=== PATIENT | male | born 1955 | race African-American/Black ===

== ENCOUNTER 2018-03-24 21:21 | Emergency (ER) | payer MEDICARE ==
[~2018-03-24] VITALS: Ht 190.5 cm; Wt 113.4 kg
--- NOTE | 2018-03-24 22:00 | PHYS DOC ---
Past History Past Medical History: Prostatitis Past Surgical History: No Surgical History Alcohol Use: Rarely Drug Use: None Adult General Chief Complaint Chief Complaint: ABDOMINAL PAIN HPI HPI 62-year-old male presents with urinary retention. The patient has been unable to urinate since noon today, 10 hours ago. The patient knows he has an enlarged prostate. He is supposed to be on medication, but quit taking it for an unknown reason. He does not know which medication he supposed be on. The patient now has lower abdominal pain all across his abdomen. He denies fever or chills. He always has some resistance to flow at baseline, but this is the first time he is not able to urinate at all. Review of Systems Review of Systems Constitutional: Denies fever or chills [] Eyes: Denies change in visual acuity, redness, or eye pain [] HENT: Denies nasal congestion or sore throat [] Respiratory: Denies cough or shortness of breath [] Cardiovascular: No additional information not addressed in HPI [] GI: Lower abdominal pain[] : Urinary retention[] Musculoskeletal: Denies back pain or joint pain [] Integument: Denies rash or skin lesions [] Neurologic: Denies headache, focal weakness or sensory changes [] Endocrine: Denies polyuria or polydipsia [] All other systems were reviewed and found to be within normal limits, except as documented in this note. Physical Exam Physical Exam Constitutional: Well developed, well nourished, no acute distress, non-toxic appearance. [] HENT: Normocephalic, atraumatic, bilateral external ears normal, oropharynx moist, no oral exudates, nose normal. [] Eyes: PERRLA, EOMI, conjunctiva normal, no discharge. [] Neck: Normal range of motion, no tenderness, supple, no stridor. [] Cardiovascular:Heart rate regular rhythm, no murmur [] Lungs & Thorax: Bilateral breath sounds clear to auscultation [] Abdomen: Obese, moderate suprapubic tenderness with guarding.[] Skin: Warm, dry, no erythema, no rash. [] Back: No tenderness. [] Extremities: No tenderness, no cyanosis, no clubbing, ROM intact, no edema. [] Neurologic: Alert and oriented X 3, normal motor function, normal sensory function, no focal deficits noted. [] Psychologic: Affect normal, judgement normal, mood normal. [] Current Patient Data Vital Signs Vital Signs Date Time Temp Pulse Resp B/P (MAP) Pulse Ox O2 Delivery O2 Flow Rate FiO2 03/24/18 21:35 98.2 103 20 95 Room Air EKG EKG [] Radiology/Procedures Radiology/Procedures [] Course & Med Decision Making Course & Med Decision Making Pertinent Labs and Imaging studies reviewed. (See chart for details) A Barclay catheter was placed. The patient had if there are milliliters out. He had immediate relief of his pain. Labs and urinalysis are pending. The patient' s labs are unremarkable. His urine was negative for section. We will discharge the patient with a Barclay catheter in place and leg bag. We will provide a referral to urology. [] Dragon Disclaimer Dragon Disclaimer This electronic medical record was generated, in whole or in part, using a voice recognition dictation system. Departure Departure: Referrals: MARTA LOPEZ MD (PCP) VANCE GASTON DO Mar 24, 2018 22:00
[2018-03-24 23:28] LABS: BACTERIA,URINE 0 /HPF (0-FEW); BILIRUBIN,URINE NEG (NEG); CLARITY,URINE CLEAR; COLOR,URINE YELLOW; GLUCOSE,URINE NEG (NEG); NITRITE,URINE NEG (NEG); SQUAMOUS EPITHELIAL CELL,UR OCC /LPF; UROBILINOGEN,URINE 0.2 mg/dL (0.2 mg/dL); WBC,URINE OCC /HPF (0-4)
[2018-03-24 23:29] LABS: SPERM,URINE PRESENT /HPF
[2018-03-24 23:43] LABS: BASO % 1 % (0-3); EOS % 0 % (0-3); HEMATOCRIT 47.1 % (39.0-53.0); HEMOGLOBIN 15.7 g/dL (13.0-17.5); LYMPH # 0.4 x10^3/uL (1.0-4.8); LYMPH % 5 % (24-48); MEAN CORPUSCULAR HEMOGLOBIN 26 pg (25-35); MEAN CORPUSCULAR HGB CONC 33 g/dL (31-37); MEAN CORPUSCULAR VOLUME 78 fL (79-100); MONO # 0.5 x10^3/uL (0.0-1.1); MONO % 7 % (0-9); NEUT # 6.6 x10^3uL (1.8-7.7); NEUT % 87 % (31-73); PLATELET COUNT 274 x10^3/uL (140-400); RED BLOOD COUNT 6.07 x10^6/uL (4.30-5.70); RED CELL DISTRIBUTION WIDTH 15.1 % (11.5-14.5); WHITE BLOOD COUNT 7.5 x10^3/uL (4.0-11.0)
[2018-03-24 23:56] LABS: ALBUMIN 3.4 g/dL (3.4-5.0); ALBUMIN/GLOBULIN RATIO 0.9 (1.0-1.7); CALCIUM 9.5 mg/dL (8.5-10.1); CREATININE 1.3 mg/dL (0.7-1.3); GFR 67.2; POTASSIUM 3.5 mmol/L (3.5-5.1); TOTAL BILIRUBIN 0.5 mg/dL (0.2-1.0); TOTAL PROTEIN 7.2 g/dL (6.4-8.2)
[2018-03-25 00:15] VITALS: BP 136/80
== END 2018-03-25 00:22 | disposition home or self-care (01) ==
LOC: ER 21:21
DX: R33.9 Retention of urine, unspecified (principal)
CPT/HCPCS: 36415; 51702; 80053; 81001; 85025; 99284

== ENCOUNTER 2018-08-29 08:59 | Emergency (ER) | payer MEDICARE, OTHER ==
[~2018-08-29] VITALS: Ht 188 cm; Wt 122.6 kg
[2018-08-29 09:51] LABS: BASO % 0 % (0-3); EOS % 0 % (0-3); HEMATOCRIT 50.1 % (39.0-53.0); HEMOGLOBIN 16.5 g/dL (13.0-17.5); LYMPH # 0.4 x10^3/uL (1.0-4.8); LYMPH % 4 % (24-48); MEAN CORPUSCULAR HEMOGLOBIN 26 pg (25-35); MEAN CORPUSCULAR HGB CONC 33 g/dL (31-37); MEAN CORPUSCULAR VOLUME 79 fL (79-100); MONO # 0.4 x10^3/uL (0.0-1.1); MONO % 5 % (0-9); NEUT # 7.8 x10^3uL (1.8-7.7); NEUT % 91 % (31-73); PLATELET COUNT 306 x10^3/uL (140-400); RED BLOOD COUNT 6.38 x10^6/uL (4.30-5.70); RED CELL DISTRIBUTION WIDTH 15.3 % (11.5-14.5); WHITE BLOOD COUNT 8.6 x10^3/uL (4.0-11.0)
[2018-08-29 09:54] LABS: COLOR,URINE YELLOW
[2018-08-29 09:55] LABS: BACTERIA,URINE FEW /HPF (0-FEW); BILIRUBIN,URINE NEG (NEG); CLARITY,URINE CLEAR; GLUCOSE,URINE NEG (NEG); NITRITE,URINE NEG (NEG); SQUAMOUS EPITHELIAL CELL,UR OCC /LPF; UROBILINOGEN,URINE 0.2 mg/dL (0.2 mg/dL); WBC,URINE OCC /HPF (0-4)
[2018-08-29 10:04] LABS: ALBUMIN 3.7 g/dL (3.4-5.0); ALBUMIN/GLOBULIN RATIO 0.9 (1.0-1.7); CALCIUM 9.3 mg/dL (8.5-10.1); CREATININE 1.1 mg/dL (0.7-1.3); GFR 81.5; TOTAL BILIRUBIN 0.5 mg/dL (0.2-1.0)
--- NOTE | 2018-08-29 10:19 | PHYS DOC ---
Past History Past Medical History: No Pertinent History Past Surgical History: No Surgical History Alcohol Use: Occasionally Drug Use: None Adult General Chief Complaint Chief Complaint: URINARY FREQUENCY HPI HPI 62-year-old otherwise healthy male presents with urinary symptoms. He states for the last 24 hours he has had urinary frequency and urgency. He states he's been urinating several times daily. He denies any low back or flank pain. He denies any gross hematuria. He states it does feel like it's difficult to get the urine out at times. She has not had problems with his prostate past.[] Review of Systems Review of Systems Constitutional: Denies fever or chills [] Eyes: Denies change in visual acuity, redness, or eye pain [] HENT: Denies nasal congestion or sore throat [] Respiratory: Denies cough or shortness of breath [] Cardiovascular: No additional information not addressed in HPI [] GI: Denies abdominal pain, nausea, vomiting, bloody stools or diarrhea [] : Per history of present illness[] Musculoskeletal: Denies back pain or joint pain [] Integument: Denies rash or skin lesions [] Neurologic: Denies headache, focal weakness or sensory changes [] Endocrine: Denies polyuria or polydipsia [] All other systems were reviewed and found to be within normal limits, except as documented in this note. Allergies Allergies Allergies Coded Allergies Type Severity Reaction Last Updated Verified No Known Drug Allergies 08/29/18 No Physical Exam Physical Exam Constitutional: Well developed, well nourished, no acute distress, non-toxic appearance. [] HENT: Normocephalic, atraumatic, bilateral external ears normal, oropharynx moist, no oral exudates, nose normal. [] Eyes: PERRLA, EOMI, conjunctiva normal, no discharge. [] Neck: Normal range of motion, no tenderness, supple, no stridor. [] Cardiovascular:Heart rate regular rhythm, no murmur [] Lungs & Thorax: Bilateral breath sounds clear to auscultation [] Abdomen: Bowel sounds normal, soft, no tenderness, no masses, no pulsatile masses. [] Skin: Warm, dry, no erythema, no rash. [] Back: No tenderness, no CVA tenderness. [] Extremities: No tenderness, no cyanosis, no clubbing, ROM intact, no edema. [] Neurologic: Alert and oriented X 3, normal motor function, normal sensory function, no focal deficits noted. [] Psychologic: Anxious. [] Current Patient Data Vital Signs Vital Signs Date Time Temp Pulse Resp B/P (MAP) Pulse Ox O2 Delivery O2 Flow Rate FiO2 08/29/18 09:07 97.8 110 20 97 Room Air Lab Results Laboratory Tests Test 08/29/18 09:11 08/29/18 09:39 Urine Collection Type Unknown Urine Color Yellow Urine Clarity Clear Urine pH 5.5 Urine Specific [place] 1.020 Urine Protein 100 mg/dl (NEG-TRACE) Urine Glucose (UA) Neg mg/dL (NEG) Urine Ketones (Stick) Neg mg/dL (NEG) Urine Blood Small (NEG) Urine Nitrite Neg (NEG) Urine Bilirubin Neg (NEG) Urine Urobilinogen Dipstick 0.2 mg/dL (0.2 mg/dL) Urine Leukocyte Esterase Small (NEG) Urine RBC 11-20 /HPF (0-2) Urine WBC Occ /HPF (0-4) Urine Squamous Epithelial Cells Occ /LPF Urine Bacteria Few /HPF (0-FEW) White Blood Count 8.6 x10^3/uL (4.0-11.0) Red Blood Count 6.38 x10^6/uL (4.30-5.70) H Hemoglobin 16.5 g/dL (13.0-17.5) Hematocrit 50.1 % (39.0-53.0) Mean Corpuscular Volume 79 fL (79-100) Mean Corpuscular Hemoglobin 26 pg (25-35) Mean Corpuscular Hemoglobin Concent 33 g/dL (31-37) Red Cell Distribution Width 15.3 % (11.5-14.5) H Platelet Count 306 x10^3/uL (140-400) Neutrophils (%) (Auto) 91 % (31-73) H Lymphocytes (%) (Auto) 4 % (24-48) L Monocytes (%) (Auto) 5 % (0-9) Eosinophils (%) (Auto) 0 % (0-3) Basophils (%) (Auto) 0 % (0-3) Neutrophils # (Auto) 7.8 x10^3uL (1.8-7.7) H Lymphocytes # (Auto) 0.4 x10^3/uL (1.0-4.8) L Monocytes # (Auto) 0.4 x10^3/uL (0.0-1.1) Eosinophils # (Auto) 0.0 x10^3/uL (0.0-0.7) Basophils # (Auto) 0.0 x10^3/uL (0.0-0.2) Sodium Level 137 mmol/L (136-145) Potassium Level 4.0 mmol/L (3.5-5.1) Chloride Level 102 mmol/L (98-107) Carbon Dioxide Level 24 mmol/L (21-32) Anion Gap 11 (6-14) Blood Urea Nitrogen 15 mg/dL (8-26) Creatinine 1.1 mg/dL (0.7-1.3) Estimated GFR (Cockcroft-Gault) 81.5 BUN/Creatinine Ratio 14 (6-20) Glucose Level 149 mg/dL (70-99) H Calcium Level 9.3 mg/dL (8.5-10.1) Total Bilirubin 0.5 mg/dL (0.2-1.0) Aspartate Amino Transferase (AST) 30 U/L (15-37) Alanine Aminotransferase (ALT) 33 U/L (16-63) Alkaline Phosphatase 91 U/L (46-116) Total Protein 8.0 g/dL (6.4-8.2) Albumin 3.7 g/dL (3.4-5.0) Albumin/Globulin Ratio 0.9 (1.0-1.7) L EKG EKG [] Radiology/Procedures Radiology/Procedures [] Impressions: Impression: Urinary tract infection Course & Med Decision Making Course & Med Decision Making Pertinent Labs and Imaging studies reviewed. (See chart for details) [ED course: Evaluation reveals a 62-year-old male whose only in no distress and describes some dysuria. His urinalysis was slightly suggestive of an early infection. I have talked with the patient about following up with urology as an outpatient. I also told the patient should he develop any pain fever nausea or vomiting he started return to the emergency department immediately.] Dragon Disclaimer Dragon Disclaimer This electronic medical record was generated, in whole or in part, using a voice recognition dictation system. Departure Departure: Impression: Primary Impression: Urinary tract infection Disposition: 01 HOME, SELF-CARE Condition: STABLE Referrals: MARTA LOPEZ MD (PCP) DAVID GALVIN MD Call today to make a follow-up appointment Patient Instructions: Benign Prostatic Hypertrophy, Prostatitis, Urinary Tract Infection Additional Instructions: Take all medication as directed. Return to the emergency department with any new or concerning symptoms Scripts Levofloxacin (LEVAQUIN) 500 Mg Tablet 500 MG PO QD for UTI, #9 TAB Prov: CB CHURCH DO 08/29/18 Tamsulosin Hcl (FLOMAX) 0.4 Mg Cap.er.24h 1 CAP PO DAILY for dysuria, #30 CAP 11 Refills Prov: CB CHURCH DO 08/29/18 Problem Qualifiers Primary Impression: Urinary tract infection Urinary tract infection type: site unspecified Hematuria presence: with hematuria Qualified Codes: N39.0 - Urinary tract infection, site not specified ; R31.9 - Hematuria, unspecified CB CHURCH DO Aug 29, 2018 10:19
[2018-08-29] MEDS ORDERED: LEVO500T59 PO (10:27)
[2018-08-29] MEDS ORDERED: TAMS0.4C97 PO (10:27)
[2018-08-29] MEDS ORDERED: TAMSULOSIN 0.4 MG CAP.ER.24H. PO ONE (10:30)
[2018-08-29] MEDS ORDERED: levoFLOXacin 500 MG TABLET PO ONE (10:30)
[2018-08-29 10:36] VITALS: BP 169/90
== END 2018-08-29 10:39 | disposition home or self-care (01) ==
LOC: ER 08:59
DX: N39.0 Urinary tract infection, site not specified (principal); R31.9 Hematuria, unspecified
CPT/HCPCS: 36415; 80053; 81001; 85025; 87086; 99283

== ENCOUNTER 2018-11-13 07:10 | Emergency (ER) | payer MEDICARE, OTHER ==
[~2018-11-13] VITALS: Ht 188 cm; Wt 117.9 kg
[~2018-11-13 07:10] MED LIST: LEVO500T59 PO; TAMS0.4C97 PO
--- NOTE | 2018-11-13 07:36 | PHYS DOC ---
Past History Past Medical History: No Pertinent History Past Surgical History: No Surgical History Smoking: Quit Greater Than 1 Year Alcohol Use: Occasionally Drug Use: None Adult General Chief Complaint Chief Complaint: Unable to urinate HPI HPI Patient is a 63 year old male who presents with urinary retention that started yesterday morning. He frequently feels like he has to go but is only able to "get dribbles out." Several years ago he experienced similar symptoms and was treated for prostatitis. Associated symptoms include suprapubic tenderness and pressure. Feels like he has to have a bowel movement. He denies fevers, chills, scrotal pain, penile discharge, dysuria, hematuria. He has no history or concern for STDs. Of note he said that he thinks he is supposed to take Flomax but is not sure if he actually has been taking it. Review of Systems Review of Systems Constitutional: Denies fever or chills HENT: Denies nasal congestion or sore throat Respiratory: Denies cough or shortness of breath GI: Reports lower abdominal pain, Denies nausea, vomiting constipation, diarrhea : Reports urinary retention, Denies dysuria or hematuria Musculoskeletal: Denies back pain or joint pain Integument: Denies rash or skin lesions Neurologic: Denies headache, focal weakness or sensory changes Complete systems were reviewed and found to be within normal limits, except as documented in this note. Allergies Allergies Allergies Coded Allergies Type Severity Reaction Last Updated Verified No Known Drug Allergies 08/29/18 No Physical Exam Physical Exam Constitutional: Well developed, well nourished, appears uncomfortable HENT: Normocephalic, atraumatic, oropharynx moist Neck: Normal range of motion, no tenderness, no masses Cardiovascular:Heart rate regular rhythm, no murmur Lungs & Thorax: Bilateral breath sounds clear to auscultation Abdomen: suprapubic tenderness on palpation, no rebound tenderness or rigidity : no penile discharge, no scrotal/testicular tenderness, swelling, or masses Skin: Warm, dry, no erythema, no rash. Back: No tenderness, no CVA tenderness. Extremities: No tenderness, moves all, no edema Neurologic: Alert and oriented X 3, normal motor function, normal sensory function, no focal deficits noted. EKG EKG [] Radiology/Procedures Radiology/Procedures [] Course & Med Decision Making Course & Med Decision Making Pertinent Lab studies reviewed. (See chart for details) Patient is a 63 year old AA male who presents with urinary retention that started yesterday. His post void bladder scan revealed about 500 ml of urine. Barclay catheter was placed and urine sample obtained. The pain significantly improved immediately after placement of catheter. There was no evidence of infection on UA and exam did not reveal penile discharge or scrotal tenderness/swelling. While reviewing previous labs he was found to have a PSA of 5.3 in 2016. BPH and his self reported noncompliance with medication likely contributing to current symptoms. Patient will be discharged with catheter in place and a prescription for Flomax. Referral to Urology provided. Dragon Disclaimer Dragon Disclaimer This electronic medical record was generated, in whole or in part, using a voice recognition dictation system. Departure Departure: Impression: Primary Impression: Urinary retention Disposition: 01 HOME, SELF-CARE Condition: STABLE Referrals: MARTA LOPEZ MD (PCP) MARY JO HU Patient Instructions: Barclay Catheter Care, Adult, Urinary Retention, Acute, Male, [id number] Scripts Tamsulosin Hcl (FLOMAX) 0.4 Mg Cap.er.24h 1 CAP PO DAILY for Urinary retention, #14 CAP 0 Refills Prov: AYLEEN CARTER DO 11/13/18 AYLEEN CARTER DO Nov 13, 2018 07:36
[2018-11-13 08:04] LABS: BILIRUBIN,URINE NEG (NEG); CLARITY,URINE CLEAR; COLOR,URINE YELLOW; GLUCOSE,URINE NEG (NEG)
[2018-11-13 08:05] LABS: BACTERIA,URINE FEW /HPF (0-FEW); NITRITE,URINE NEG (NEG); UROBILINOGEN,URINE 0.2 mg/dL (0.2 mg/dL); WBC,URINE RARE /HPF (0-4)
[2018-11-13] MEDS ORDERED: TAMS0.4C97 PO (08:21)
[2018-11-13 08:43] VITALS: BP 141/83
[2018-11-13] MEDS ORDERED: TAMSULOSIN 0.4 MG CAP.ER.24H. PO ONE (08:45)
== END 2018-11-13 08:43 | disposition home or self-care (01) ==
LOC: ER 07:10
DX: R33.9 Retention of urine, unspecified (principal); R10.30 Lower abdominal pain, unspecified; Z87.891 Personal history of nicotine dependence
CPT/HCPCS: 51702; 81001; 99284-25

== ENCOUNTER → 2019-01-31 | Outpatient (CLI) | payer OTHER ==
--- NOTE | 2019-01-31 17:49 | RAD ---
2 view study of the second digit of left hand Clinical indications: Pain. No acute fracture or dislocation or lytic process or radiopaque foreign body is evident. IMPRESSION: No acute fracture. 2 view study of the right ankle: INDICATIONS: Pain. FINDINGS: No acute fracture or dislocation or osteolytic process is seen. The mortise ankle joint is intact. IMPRESSION: No acute fracture. Two-view study right foot: INDICATIONS: Right foot pain. FINDINGS: Moderate-sized plantar spur of the calcaneus is seen. There is flattening of the plantar arch. No acute fracture or dislocation or lytic process is seen. No periosteal reaction is evident. IMPRESSION: No acute fracture. Electronically signed by: Jad Ward MD (01/31/2019 5:46 PM) [id number]
== END | disposition home or self-care (01) ==
LOC: PMG 10:42
PROVIDERS: ATTEND Registered Nurse
DX: M77.31 Calcaneal spur, right foot (principal)
CPT/HCPCS: 73140; 73600; 73620

== ENCOUNTER 2019-02-01 03:01 | Emergency (ER) | payer MEDICARE, OTHER ==
[~2019-02-01] VITALS: Ht 188 cm; Wt 116.6 kg
[2019-02-01 03:13] VITALS: BP 163/122
[2019-02-01 03:38] LABS: BACTERIA,URINE 0 /HPF (0-FEW); BILIRUBIN,URINE NEG (NEG); CLARITY,URINE CLEAR; COLOR,URINE YELLOW; GLUCOSE,URINE NEG (NEG); NITRITE,URINE NEG (NEG); UROBILINOGEN,URINE 0.2 mg/dL (0.2 mg/dL); WBC,URINE 0 /HPF (0-4)
--- NOTE | 2019-02-01 04:21 | PHYS DOC ---
Past History Past Medical History: Other Additional Past Medical Histor: BPH Past Surgical History: Other Smoking: Quit Greater Than 1 Year Alcohol Use: Occasionally Drug Use: None Adult General Chief Complaint Chief Complaint: URINARY RETENTION HPI HPI Patient is a 63-year-old male presents with inability to urinate. This has been a long-standing issue for which he is on tamsulosin. Tonight after having a shot of alcohol to help him get to sleep he was unable to void. Denies any trauma. Denies any fever. Notes some discomfort at the beginning of his urinary stream for the past several days. Denies any blood in the urine.[] Review of Systems Review of Systems Constitutional: Denies fever or chills [] Eyes: Denies change in visual acuity, redness, or eye pain [] HENT: Denies nasal congestion or sore throat [] Respiratory: Denies cough or shortness of breath [] Cardiovascular: No chest pain or palpitations[] GI: Denies abdominal pain, nausea, vomiting, bloody stools or diarrhea [] : Denies dysuria or hematuria, see history of present illness [] Musculoskeletal: Denies back pain or joint pain [] Integument: Denies rash or skin lesions [] Neurologic: Denies headache, focal weakness or sensory changes [] Endocrine: Denies polyuria or polydipsia [] All other systems were reviewed and found to be within normal limits, except as documented in this note. Allergies Allergies Allergies Coded Allergies Type Severity Reaction Last Updated Verified No Known Drug Allergies 08/29/18 No Physical Exam Physical Exam Constitutional: Well developed, well nourished, no acute distress, non-toxic appearance. [] HENT: Normocephalic, atraumatic, bilateral external ears normal, oropharynx moist, no oral exudates, nose normal. [] Eyes: PERRLA, EOMI, conjunctiva normal, no discharge. [] Neck: Normal range of motion, no tenderness, supple, no stridor. [] Cardiovascular:Heart rate regular rhythm, no murmur [] Lungs & Thorax: Bilateral breath sounds clear to auscultation [] Abdomen: Bowel sounds normal, soft, no tenderness, no masses, no pulsatile masses. [] Skin: Warm, dry, no erythema, no rash. [] Back: No tenderness, no CVA tenderness. [] Extremities: No tenderness, no cyanosis, no clubbing, ROM intact, no edema. [] Neurologic: Alert and oriented X 3, normal motor function, normal sensory function, no focal deficits noted. [] Psychologic: Affect normal, judgement normal, mood normal. [] Current Patient Data Vital Signs Vital Signs Date Time Temp Pulse Resp B/P (MAP) Pulse Ox O2 Delivery O2 Flow Rate FiO2 02/01/19 03:13 97.5 94 24 96 Room Air EKG EKG [] Radiology/Procedures Radiology/Procedures [] Course & Med Decision Making Course & Med Decision Making Pertinent Labs and Imaging studies reviewed. (See chart for details) ED course: Patient arrived, was placed in bed, and tolerated exam well. He had a bladder scan performed that showed over 900 mL of urine as a post voiding attempt residual. A urinary catheter was placed without any difficulty and returned approximately 1 L of urine. He reported feeling much better after the catheter was placed. Urine was sent for laboratory analysis. Findings were discussed with the patient who voiced understanding. All questions were answered. He was discharged in improved condition. Medical decision making: Patient appears to have an issue of urinary retention. No evidence of urinary tract infection or prostatitis.[] Dragon Disclaimer Dragon Disclaimer This electronic medical record was generated, in whole or in part, using a voice recognition dictation system. Departure Departure: Impression: Primary Impression: Urinary retention Disposition: 01 HOME, SELF-CARE Condition: IMPROVED Referrals: MARTA LOPEZ MD (PCP) Follow-up in 2 days Patient Instructions: Barclay Catheter Care, Adult, Urinary Retention, Acute, Male Additional Instructions: Follow-up with your regular doctor or urologist in 2 days. Return to the ER if worsening discomfort or any other concerns. RENATO DEGROOT DO February 01, 2019 04:21
== END 2019-02-01 04:27 | disposition home or self-care (01) ==
LOC: ER 03:01
DX: N40.1 Benign prostatic hyperplasia with lower urinary tract symptoms (principal); R33.8 Other retention of urine; Z87.891 Personal history of nicotine dependence
CPT/HCPCS: 51702; 81001; 99285-25

== ENCOUNTER 2019-05-25 03:45 | Emergency (ER) | payer MEDICARE, OTHER ==
[~2019-05-25] VITALS: Ht 188 cm; Wt 115.7 kg
--- NOTE | 2019-05-25 03:48 | ED.ADGEN ---
Past History Past Medical History: Prostatitis, Other Additional Past Medical Histor: BPH Past Surgical History: Other Smoking: Quit Greater Than 1 Year Alcohol Use: Occasionally Drug Use: None Adult General Chief Complaint Chief Complaint " I'm having problems trying to urinate"... HPI HPI Patient is a 63 year old male who presents with above hx and complaints urinary retention. The patient has only been able. Reduce a few cc of urine throughout the day. Patient has a very distended lower abdomen. Marked pain on palpitation of lower abdomen. Patient declined rectal exam at this time. Pt. had 7 prior visits for urinary retention and prostate issues. He denies any history of STDs. Patient denies any risks for STDs. Review of Systems Review of Systems Constitutional: Denies fever or chills [] Eyes: Denies change in visual acuity, redness, or eye pain [] HENT: Denies nasal congestion or sore throat [] Respiratory: Denies cough or shortness of breath [] Cardiovascular: No additional information not addressed in HPI [] GI: Complaints of lower bladder or pelvic abdominal pain. Denies, nausea, vomiting, bloody stools or diarrhea [] : Complains of dysuria and urinary retention Musculoskeletal: Denies back pain or joint pain [] Integument: Denies rash or skin lesions [] Neurologic: Denies headache, focal weakness or sensory changes [] Endocrine: Denies polyuria or polydipsia [] All other systems were reviewed and found to be within normal limits, except as documented in this note. Family History Family History Noncontributory Current Medications Current Medications Current Medications Medications (Trade) Dose Ordered Sig/[facility] Start Time Stop Time Status Last Admin Dose Admin Levofloxacin (Levaquin) 500 mg 1X ONCE 05/25/19 06:00 05/25/19 06:01 DC 05/25/19 05:55 500 MG Phenazopyridine HCl (Pyridium) 200 mg 1X ONCE 05/25/19 06:00 05/25/19 06:01 DC 05/25/19 05:55 200 MG Tamsulosin HCl (Flomax) 0.4 mg 1X ONCE 05/25/19 05:00 05/25/19 05:01 DC 05/25/19 04:26 0.4 MG Allergies Allergies Allergies Coded Allergies Type Severity Reaction Last Updated Verified No Known Drug Allergies 08/29/18 No Physical Exam Physical Exam Constitutional: , in acute distress, non-toxic appearance. [] HENT: Normocephalic, atraumatic, bilateral external ears normal, oropharynx moist, no oral exudates, nose normal. [] Eyes: PERRLA, EOMI, conjunctiva normal, no discharge. [] Neck: Normal range of motion, no tenderness, supple, no stridor. [] Cardiovascular:Heart rate regular rhythm, no murmur [] Lungs & Thorax: Bilateral breath sounds clear to auscultation [] Abdomen: Bowel sounds normal, soft, pelvic tenderness, bladder distended, no pulsatile masses. [] Skin: Warm, dry, no erythema, no rash. [] Back: No tenderness, no CVA tenderness. [] Extremities: No tenderness, no cyanosis, no clubbing, ROM intact, no edema. [] Neurologic: Alert and oriented X 3, normal motor function, normal sensory function, no focal deficits noted. [] Psychologic: Affect anxious, judgement normal, mood normal. [] Current Patient Data Vital Signs Vital Signs Date Time Temp Pulse Resp B/P (MAP) Pulse Ox O2 Delivery O2 Flow Rate FiO2 05/25/19 03:58 98.3 87 18 97 Room Air Lab Results Laboratory Tests Test 05/25/19 04:00 Urine Collection Type Unknown Urine Color Straw Urine Clarity Hazy Urine pH 7.0 Urine Specific [place] 1.015 Urine Protein Trace (NEG-TRACE) Urine Glucose (UA) Neg mg/dL (NEG) Urine Ketones (Stick) Neg mg/dL (NEG) Urine Blood Trace (NEG) Urine Nitrite Neg (NEG) Urine Bilirubin Neg (NEG) Urine Urobilinogen Dipstick 0.2 mg/dL (0.2 mg/dL) Urine Leukocyte Esterase Small (NEG) Urine RBC 1-2 /HPF (0-2) Urine WBC 5-10 /HPF (0-4) Urine Squamous Epithelial Cells Occ /LPF Urine Transitional Epithelial Cells Occ /LPF Urine Bacteria Few /HPF (0-FEW) EKG EKG [] Radiology/Procedures Radiology/Procedures [] Course & Med Decision Making Course & Med Decision Making Pertinent Labs and Imaging studies reviewed. (See chart for details). Patient had over 1000cc of urine out after placement of Barclay catheter Patient's take Levaquin 500 mg daily for 5 days. Patient take Flomax daily. Follow-up with primary. Follow-up with urology. Return if any concerns. Patient given warning about hypotension with Flomax. [] Final Impression Final Impression 1. History of prostate enlargement BPH 2. Urinary retention 3. UTI[] Dragon Disclaimer Dragon Disclaimer This electronic medical record was generated, in whole or in part, using a voice recognition dictation system. Dragon Disclaimer This chart was dictated in whole or in part using Voice Recognition software in a busy, high-work load, and often noisy Emergency Department environment. It may contain unintended and wholly unrecognized errors or omissions. MARK CHEATHAM MD May 25, 2019 03:48
[2019-05-25 04:57] LABS: BILIRUBIN,URINE NEG (NEG); CLARITY,URINE HAZY; COLOR,URINE STRAW; GLUCOSE,URINE NEG (NEG); UROBILINOGEN,URINE 0.2 mg/dL (0.2 mg/dL)
[2019-05-25 04:58] LABS: BACTERIA,URINE FEW /HPF (0-FEW); NITRITE,URINE NEG (NEG); SQUAMOUS EPITHELIAL CELL,UR OCC /LPF
[2019-05-25] MEDS ORDERED: TAMSULOSIN 0.4 MG CAP.ER.24H. PO ONE (05:00)
[2019-05-25] MEDS ORDERED: TAMS0.4C97 PO (05:21)
[2019-05-25] MEDS ORDERED: LEVO500T59 PO (05:21)
[2019-05-25] MEDS ORDERED: HYDR-1179 PO (05:23)
[2019-05-25] MEDS ORDERED: levoFLOXacin 500 MG TABLET PO ONE (06:00)
[2019-05-25] MEDS ORDERED: PHENAZOPYRIDINE 200 MG TABLET. PO ONE (06:00)
== END 2019-05-25 06:00 | disposition home or self-care (01) ==
LOC: ER 03:45
DX: N40.1 Benign prostatic hyperplasia with lower urinary tract symptoms (principal); R33.8 Other retention of urine; Z87.891 Personal history of nicotine dependence
CPT/HCPCS: 51702; 81001; 87086; 87186; 99284